=== PATIENT | female | born 1985 | race African-American/Black ===

== ENCOUNTER → 2016-09-12 | Outpatient (CLI) | payer OTHER ==
--- NOTE | 2016-09-13 10:18 | RADIOLOGY REPORT PS360 ---
MRI-BRAIN W/WO HISTORY: Severe headache, abnormal COUGH, HEADACHE, DYSPNEA, DISORDER OF ORDERING PHYSICIAN: Twin Akins MD PATIENT AGE: 31 years COMPARISON: None TECHNIQUE: Standard multiplanar multiecho sequences are performed without contrast. FINDINGS: No midline shift, mass effect, intracranial hemorrhage, or hydrocephalus is evident. The anterior has an unremarkable appearance. It should be noted however, a small microadenoma may not be visualized by this technique. Dedicated MRI of the pituitary gland may be of further value if clinically warranted. No gross pituitary abnormalities apparent. Optic chiasm and corpus callosum are unremarkable. Hippocampal gyri are unremarkable in the temporal horns are symmetric. There is a single small focus of increased T2 signal involving the subcortical white matter in the right parietal lobe anteriorly. This does not enhance and does not show restricted diffusion. This is probably due to small gliotic focus. No evidence of cerebellar tonsillar ectopia. The cerebellopontine angles, cerebellum, and brainstem are unremarkable. No sinus air-fluid level or mastoid effusion is evident. IMPRESSION: 1. No acute intracranial pathology evident. 2. No gross pituitary abnormalities evident. Small microadenomas may not be seen with this technique. Further evaluation could be obtained with dedicated MRI of the pituitary clinically warranted 3. Nonspecific T2 hyperintensity in the subcortical region in the right parietal area probably due to small gliotic focus of uncertain etiology and clinical significance
== END ==
LOC: RAD 14:19
DX: R51 Headache (principal); R05 Cough; R06.02 Shortness of breath; J04.10 Acute tracheitis without obstruction; J06.9 Acute upper respiratory infection, unspecified; O92.70 Unspecified disorders of lactation
CPT/HCPCS: A9576

== ENCOUNTER → 2016-09-18 | Outpatient (CLI) | payer OTHER ==
[2016-09-18 21:33] LABS: BUN 9 mg/dL (7-18)
[2016-09-18 22:10] LABS: GFR (ESTIMATED) 116 ML/MIN (59-)
[2016-09-22 10:34] LABS: Folate (Folic Acid) 13.7 ng/mL (>3.0); Prolactin 10.4 ng/mL (4.8-23.3); Vitamin D, 25-Hydroxy 19.7 ng/mL (30.0-100.0)
== END ==
LOC: MAY-LAB 14:13
PROVIDERS: Internal Medicine Endocrinology, Diabetes & Metabolism
DX: E07.1 Dyshormogenetic goiter (principal); E34.9 Endocrine disorder, unspecified

== ENCOUNTER → 2016-09-19 | Outpatient (CLI) | payer OTHER ==
--- NOTE | 2016-09-20 13:49 | RADIOLOGY REPORT PS360 ---
MRI-BRAIN W/WO HISTORY: Headache with disorder of SEVERE HEADACHES ORDERING PHYSICIAN: Twin Akins MD PATIENT AGE: 31 years COMPARISON: None TECHNIQUE: Coronal T1 pre enhanced and dynamic post enhanced coronal T1-weighted images are obtained along with pre and post enhanced axial T1.. FINDINGS: The pituitary gland has an unremarkable appearance. There is no evidence of micro or macroadenoma. Pituitary stalk is midline. Optic chiasm is unremarkable. IMPRESSION: Negative MRI of the pituitary.
== END ==
LOC: RAD 09:23
DX: R51 Headache (principal)
CPT/HCPCS: A9576